=== PATIENT | male | born 1975 | race Caucasian/White ===

== ENCOUNTER 2023-05-21 19:06 | Inpatient (IN) | payer MEDICAID, OTHER ==
[~2023-05-21] VITALS: Ht 177.8 cm; Wt 61.7 kg
[2023-05-21] MEDS ORDERED: KETOROLAC 15MG/ML VIAL IV ONE (19:30)
[2023-05-21] MEDS ORDERED: SODIUM CHLORIDE 0.9% 1,000 ML IV ONE (19:30)
[2023-05-21 20:00] LABS: BASOPHILS % 0.6 % (0.0-2.0); EOSINOPHILS % 0.6 % (0.0-5.0); HEMOGLOBIN. 14.6 g/dL (14.0-18.0); LYMPHOCYTES % 7.2 % (20.0-50.0); MEAN CORPUSCULAR HEMOGLOBIN 29.7 pg (28.0-32.0); MEAN CORPUSCULAR HGB CONC 33.1 g/dL (31.0-37.0); MEAN CORPUSCULAR VOLUME 89.6 fL (80.0-94.0); MEAN PLATELET VOLUME 7.8 fl (7.4-10.4); MONOCYTES % 7.4 % (2.0-8.0); NEUTROPHILS % 84.2 % (40.0-76.0); PLATELET 394 x1000/uL (130-400); RED BLOOD CELL COUNT 4.91 mill/uL (4.7-6.1); RED CELL DISTRIBUTION WIDTH 13.3 % (11.6-14.6); WHITE BLOOD COUNT 14.5 x1000/uL (4.5-11.0)
[2023-05-21 20:09] LABS: CHLORIDE 101 mEq/L (98-107); INDEX HEMOLYSI 1 (1-3); INDEX ICTERIC 1 (1-4); INDEX LIPEMIC 1 (1-3); POTASSIUM 3.4 mEq/L (3.5-5.1); SODIUM 131 mEq/L (136-145)
[2023-05-21 20:10] LABS: PROTHROMBIN TIME 10.5 sec (9.6-11.0)
[2023-05-21 20:18] LABS: ALANINE AMINOTRANSFERASE 10 IU/L (13-61); ALBUMIN 2.5 g/dL (3.4-5.0); ASPARTATE AMINOTRANSFERASE 5 IU/L (15-37); BETA HYDROXYBUTYRATE 9.9 mMol/L (0.0-0.3); BILIRUBIN TOTAL 0.5 mg/dL (0.1-1.0); CREATININE 0.7 mg/dL (0.6-1.3); PROTEIN TOTAL 8.6 g/dL (6.0-8.3); UREA NITROGEN BLOOD 8 mg/dL (7-21)
[2023-05-21 20:24] LABS: CARBON DIOXIDE 7 mEq/L (21-32); GLUCOSE 408 mg/dL (70-105); TROPONIN I HIGH SENSITIVITY < 4 ng/L (<78)
[2023-05-21] MEDS ORDERED: VANCOMYCIN 1G PREMIX 200 ML IV STA (20:37)
[2023-05-21] MEDS ORDERED: PIPERACILLIN/TAZOBACTAM 3.375GM/50ML PREMIX IV STA (20:37)
[2023-05-21] MEDS ORDERED: INSULIN REGULAR (DRIP) 100 UNITS in SODIUM CHLORIDE 0.9% 99 ML IV SCH (20:45)
[2023-05-21] MEDS: DEXT 5%/0.9% NACL 1,000 ML IV SCH (20:45)
[2023-05-21] MEDS ORDERED: DEXTROSE 50% WATER 50ML SYRINGE IV PRN (20:45)
[2023-05-21] MEDS ORDERED: KCL 20MEQ/100ML PREMIX 100 ML IV PRN (20:45)
[2023-05-21] MEDS ORDERED: PIPERACILLIN/TAZ 3.375G PREMIX 50 ML IV NR (20:45)
[2023-05-21] MEDS: BLOOD SUGAR DIAGNOSTIC STRIP TEST SCH ×4 (20:54→23:45)
[2023-05-21 21:08] LABS: PHOSPHORUS 2.8 mg/dL (2.5-4.9)
[2023-05-21 21:13] LABS: BG BASE EXCESS -18.5 mmol/L (-2.0-2.0); BG CARBOXYHEMOGLOBIN 0.5 % (0.5-1.5); BG DEOXYHEMOGLOBIN 3.4 % (0.0-5.0); BG FRACTION INSPIRED OXYGEN 21; BG HCO3 ACT 6.1 mmol/L (22.0-26.0); BG OXYGEN SATURATION 96.6 % (92.0-98.5); BG OXYHEMOGLOBIN 96.1 % (94.0-97.0); BG PCO2 14.5 mmHg (35.0-45.0); BG PH 7.243 (7.350-7.450); BG PO2 88.5 mmHg (75.0-100.0); BG TOTAL HEMOGLOBIN 14.3 g/dL (12.0-18.0); BG VENT MODE NASAL CANNULA
[2023-05-21] MEDS: SODIUM CHLORIDE 0.9% 1,000 ML IV SCH (21:28)
[2023-05-21] MEDS ORDERED: INSULIN REGULAR 100U/100ML PMX 100 ML IV ONE (21:30)
[2023-05-21 22:00] LABS: TROPONIN I HIGH SENSITIVITY < 4 ng/L (<78)
[2023-05-22] MEDS: SODIUM CHLORIDE 0.9% 1,000 ML IV SCH ×2 (00:45→08:30)
[2023-05-22] MEDS: DEXT 5%/0.9% NACL 1,000 ML IV SCH ×6 (00:45→20:45)
[2023-05-22] MEDS: BLOOD SUGAR DIAGNOSTIC STRIP TEST SCH ×14 (00:45→20:56)
[2023-05-22] MEDS ORDERED: IOHEXOL-300 100 ML BOTTLE ONE (04:09)
[2023-05-22 05:26] LABS: CHLORIDE 106 mEq/L (98-107); INDEX HEMOLYSI 1 (1-3); INDEX ICTERIC 1 (1-4); INDEX LIPEMIC 1 (1-3); POTASSIUM 3.3 mEq/L (3.5-5.1); SODIUM 133 mEq/L (136-145)
[2023-05-22 05:32] LABS: ALANINE AMINOTRANSFERASE 10 IU/L (13-61); ALBUMIN 2.3 g/dL (3.4-5.0); ASPARTATE AMINOTRANSFERASE 5 IU/L (15-37); BILIRUBIN TOTAL 0.4 mg/dL (0.1-1.0); CALCIUM 8.2 mg/dL (8.5-10.1); CARBON DIOXIDE 14 mEq/L (21-32); CREATININE 0.7 mg/dL (0.6-1.3); GLUCOSE 294 mg/dL (70-105); PROTEIN TOTAL 7.9 g/dL (6.0-8.3); UREA NITROGEN BLOOD 9 mg/dL (7-21)
[2023-05-22] MEDS ORDERED: POTASSIUM CHLORIDE INJ 40 MEQ in DEXT 5% WATER 250 ML IV ONE (07:15)
[2023-05-22] MEDS: KCL 20MEQ/100ML X 2 FOR TOTAL KCL 40MEQ/200ML IV SCH ×2 (08:00→10:00)
[2023-05-22 09:28] LABS: CHLORIDE 109 mEq/L (98-107); INDEX HEMOLYSI 1 (1-3); INDEX ICTERIC 1 (1-4); INDEX LIPEMIC 1 (1-3); SODIUM 135 mEq/L (136-145)
[2023-05-22 09:39] LABS: ALANINE AMINOTRANSFERASE 9 IU/L (13-61); ALBUMIN 2.2 g/dL (3.4-5.0); BILIRUBIN TOTAL 0.3 mg/dL (0.1-1.0); CALCIUM 8.2 mg/dL (8.5-10.1); CARBON DIOXIDE 17 mEq/L (21-32); CREATININE 0.6 mg/dL (0.6-1.3); GLUCOSE 147 mg/dL (70-105); PROTEIN TOTAL 7.8 g/dL (6.0-8.3); UREA NITROGEN BLOOD 10 mg/dL (7-21)
[2023-05-22 10:09] LABS: ASPARTATE AMINOTRANSFERASE 3 IU/L (15-37)
[2023-05-22 10:11] LABS: POTASSIUM 2.8 mEq/L (3.5-5.1)
[2023-05-22 10:12] LABS: BG BASE EXCESS -8.6 mmol/L (-2.0-2.0); BG CARBOXYHEMOGLOBIN 0.6 % (0.5-1.5); BG DEOXYHEMOGLOBIN 2.2 % (0.0-5.0); BG FRACTION INSPIRED OXYGEN 21; BG HCO3 ACT 14.5 mmol/L (22.0-26.0); BG METHEMOGLOBIN 0.2 % (0.0-1.5); BG OXYGEN SATURATION 97.8 % (92.0-98.5); BG PCO2 24.8 mmHg (35.0-45.0); BG PH 7.384 (7.350-7.450); BG PO2 95.8 mmHg (75.0-100.0); BG SAMPLE SITE RIGHT BRACHIAL; BG TOTAL HEMOGLOBIN 14.1 g/dL (12.0-18.0); BG VENT MODE ROOM AIR
[2023-05-22 20:31] LABS: CHLORIDE 111 mEq/L (98-107); INDEX HEMOLYSI 1 (1-3); INDEX ICTERIC 1 (1-4); INDEX LIPEMIC 1 (1-3); POTASSIUM 3.1 mEq/L (3.5-5.1); SODIUM 137 mEq/L (136-145)
[2023-05-22 20:38] LABS: ALANINE AMINOTRANSFERASE 8 IU/L (13-61); ALBUMIN 2.1 g/dL (3.4-5.0); ASPARTATE AMINOTRANSFERASE 6 IU/L (15-37); BILIRUBIN TOTAL 0.3 mg/dL (0.1-1.0); CALCIUM 8.4 mg/dL (8.5-10.1); CARBON DIOXIDE 18 mEq/L (21-32); CREATININE 0.5 mg/dL (0.6-1.3); GLUCOSE 138 mg/dL (70-105); PROTEIN TOTAL 7.8 g/dL (6.0-8.3); UREA NITROGEN BLOOD 7 mg/dL (7-21)
[2023-05-22] MEDS ORDERED: DEXTROSE 50% WATER 50ML SYRINGE IV PRN (21:15)
[2023-05-22] MEDS: INSULIN LISPRO 100 UNITS/ML SUBCUT SCH (22:55)
[2023-05-22 22:58] LABS: BG BASE EXCESS -6.4 mmol/L (-2.0-2.0); BG CARBOXYHEMOGLOBIN 0.8 % (0.5-1.5); BG DEOXYHEMOGLOBIN 1.9 % (0.0-5.0); BG FRACTION INSPIRED OXYGEN 21; BG HCO3 ACT 16.6 mmol/L (22.0-26.0); BG METHEMOGLOBIN 0.1 % (0.0-1.5); BG OXYGEN SATURATION 98.1 % (92.0-98.5); BG OXYHEMOGLOBIN 97.2 % (94.0-97.0); BG PCO2 26.9 mmHg (35.0-45.0); BG PH 7.407 (7.350-7.450); BG PO2 103.6 mmHg (75.0-100.0); BG SAMPLE SITE RIGHT BRACHIAL; BG TOTAL HEMOGLOBIN 14.6 g/dL (12.0-18.0); BG VENT MODE ROOM AIR
[2023-05-23] MEDS ORDERED: DEXTROSE 50% WATER 50ML SYRINGE IV PRN (00:15)
[2023-05-23] MEDS: BLOOD SUGAR DIAGNOSTIC STRIP TEST SCH ×5 (00:32→21:00)
[2023-05-23] MEDS: INSULIN LISPRO 100 UNITS/ML SUBCUT SCH ×7 (00:44→21:00)
[2023-05-23 01:17] VITALS: BP 120/74; PULSE 87; RESP 17; TEMP 97.7
[2023-05-23] MEDS ORDERED: BLOOD SUGAR DIAGNOSTIC STRIP TEST SCH (06:30)
[2023-05-23 06:45] LABS: CALCIUM 8.1 mg/dL (8.5-10.1); CARBON DIOXIDE 18 mEq/L (21-32); CHLORIDE 108 mEq/L (98-107); INDEX HEMOLYSI 1 (1-3); INDEX ICTERIC 1 (1-4); INDEX LIPEMIC 1 (1-3); POTASSIUM 2.9 mEq/L (3.5-5.1); SODIUM 136 mEq/L (136-145)
[2023-05-23 06:49] LABS: CREATININE 0.5 mg/dL (0.6-1.3); GLUCOSE 256 mg/dL (70-105); UREA NITROGEN BLOOD 8 mg/dL (7-21)
[2023-05-23] MEDS ORDERED: INSULIN LISPRO 100 UNITS/ML SUBCUT SCH (07:00)
[2023-05-23 07:13] LABS: BASOPHILS % 1.9 % (0.0-2.0); EOSINOPHILS % 4.1 % (0.0-5.0); HEMATOCRIT. 41.3 % (42.0-52.0); HEMOGLOBIN. 14.3 g/dL (14.0-18.0); LYMPHOCYTES % 13.8 % (20.0-50.0); MEAN CORPUSCULAR HGB CONC 34.7 g/dL (31.0-37.0); MEAN CORPUSCULAR VOLUME 86.5 fL (80.0-94.0); MEAN PLATELET VOLUME 7.8 fl (7.4-10.4); MONOCYTES % 8.3 % (2.0-8.0); NEUTROPHILS % 71.9 % (40.0-76.0); PLATELET 424 x1000/uL (130-400); RED BLOOD CELL COUNT 4.78 mill/uL (4.7-6.1); RED CELL DISTRIBUTION WIDTH 13.4 % (11.6-14.6); WHITE BLOOD COUNT 9.3 x1000/uL (4.5-11.0)
[2023-05-23 08:00] VITALS: BP 97/55; PULSE 80; RESP 21; TEMP 98
[2023-05-23] MEDS ORDERED: POTASSIUM CHLORIDE 20MEQ TABLET SR PO NR (08:30)
[2023-05-23] MEDS: PIPERACILLIN/TAZOBACTAM 3.375 G in DEXTROSE 5% WATER 50 ML IV SCH ×2 (10:54→17:39)
[2023-05-23 12:00] VITALS: BP 101/65; PULSE 107; RESP 11; TEMP 98
[2023-05-23 13:16] LABS: HEPATITIS B SURFACE ANTIGEN NEGATIVE
[2023-05-23 13:44] LABS: HEPATITIS C VIR.AB 0.17 INDEXVAL (0.00-0.80)
[2023-05-23 16:00] VITALS: BP 113/74; PULSE 86; RESP 13; TEMP 98
[2023-05-24] MEDS: PIPERACILLIN/TAZOBACTAM 3.375 G in DEXTROSE 5% WATER 50 ML IV SCH ×4 (03:00→21:53)
[2023-05-24 07:07] LABS: PREALBUMIN 6.5 mg/dL (20.0-40.0)
[2023-05-24] MEDS: BLOOD SUGAR DIAGNOSTIC STRIP TEST SCH ×4 (07:23→21:00)
[2023-05-24 08:00] VITALS: BP 110/75; PULSE 86; RESP 15; TEMP 99
[2023-05-24] MEDS: INSULIN LISPRO 100 UNITS/ML SUBCUT SCH ×6 (08:23→22:18)
[2023-05-24] MEDS ORDERED: NALOXONE HCL 0.4MG/ML VIAL IV PRN (09:15)
[2023-05-24] MEDS: HYDROCODONE/ACETAMINOPHEN 10/325MG TABLET PO PRN ×3 (09:41→11:53)
[2023-05-24 10:00] VITALS: BP 111/80; PULSE 77; RESP 18; TEMP 98.3
[2023-05-24] MEDS ORDERED: INSULIN GLARGINE 100 UNITS/ML SUBCUT NR (11:45)
[2023-05-24 12:00] VITALS: BP 110/95; PULSE 70; RESP 22; TEMP 99
[2023-05-24 16:00] VITALS: BP 99/69; RESP 18; TEMP 98.5
[2023-05-24] MEDS ORDERED: INSULIN LISPRO 100 UNITS/ML SUBCUT SCH ×2 (16:50)
[2023-05-24 20:00] VITALS: BP 97/61; PULSE 71; RESP 11; TEMP 98.8
[2023-05-24] MEDS: POTASSIUM CHLORIDE 20MEQ TABLET SR PO SCH (21:58)
[2023-05-25] VITALS: BP 93/61; PULSE 74; RESP 12; TEMP 98.3
[2023-05-25] MEDS: HYDROCODONE/ACETAMINOPHEN 10/325MG TABLET PO PRN ×3 (01:16→23:03)
[2023-05-25] MEDS: POTASSIUM CHLORIDE 20MEQ TABLET SR PO SCH ×2 (01:17→04:27)
[2023-05-25 04:00] VITALS: BP 95/62; PULSE 71; RESP 14; TEMP 98.2
[2023-05-25] MEDS: BLOOD SUGAR DIAGNOSTIC STRIP TEST SCH ×4 (06:27→21:00)
[2023-05-25] MEDS: PIPERACILLIN/TAZOBACTAM 3.375 G in DEXTROSE 5% WATER 50 ML IV SCH (06:27)
[2023-05-25] MEDS: INSULIN LISPRO 100 UNITS/ML SUBCUT SCH ×7 (06:35→22:49)
[2023-05-25 08:00] VITALS: BP 100/80; PULSE 70; RESP 19; TEMP 99
[2023-05-25] MEDS: INSULIN GLARGINE 100 UNITS/ML SUBCUT SCH ×2 (09:38→22:48)
[2023-05-25] MEDS ORDERED: CEPH500C2 MT (11:39)
[2023-05-25] MEDS ORDERED: INSU100I28 SQ (11:39)
[2023-05-25 12:00] VITALS: BP 125/75; PULSE 80; RESP 22; TEMP 99
[2023-05-25] MEDS ORDERED: LIDOCAINE HCL 1% 10 MG/ML 10ML VIAL ONE (12:43)
[2023-05-25] MEDS ORDERED: PROPOFOL 200MG/20ML VIAL IV ONE (12:43)
[2023-05-25] MEDS ORDERED: FENTANYL CITRATE/PF 50MCG/ML 2ML VIAL ONE (12:44)
[2023-05-25] MEDS ORDERED: LIDOCAINE HCL 1% 20ML VIAL (Pyxis) INJ ONE (12:52)
[2023-05-25] MEDS ORDERED: BUPIVACAINE HCL/PF 0.5% (5MG/ML) 10ML ONE (12:52)
[2023-05-25] MEDS ORDERED: POLYMYXIN B SULFATE 500000 UNITS/VIAL ONE (12:53)
[2023-05-25] MEDS ORDERED: SKIN ADHESIVE 0.7 GM EA TOP ONE (12:54)
[2023-05-25] MEDS ORDERED: ONDANSETRON HCL 4MG/2ML INJ IV PRN (13:00)
[2023-05-25] MEDS ORDERED: MORPHINE SULFATE 4 MG/ML CPJ (NOT FOR IM USE) IV PRN (13:00)
[2023-05-25] MEDS ORDERED: MORPHINE SULFATE 2 MG/ML CPJ (NOT FOR IM USE) IV PRN (13:00)
[2023-05-25 13:23] LABS: POTASSIUM 4.7 mEq/L (3.5-5.1)
[2023-05-25 16:00] VITALS: BP 100/69; PULSE 73; RESP 12; TEMP 98.6
[2023-05-25] MEDS: CEFAZOLIN 1000MG PREMIX 50 ML IV SCH (17:00)
[2023-05-25 20:00] VITALS: BP 89/62; PULSE 80; RESP 13; TEMP 97.7
[2023-05-26] VITALS (7 sets, daily range): BP systolic 89–117; BP diastolic 59–77; PULSE 71–100; RESP 12–20; TEMP 97.8–99.2; O2SAT 98
[2023-05-26] MEDS: CEFAZOLIN 1000MG PREMIX 50 ML IV SCH ×3 (01:32→17:42)
[2023-05-26] MEDS: BLOOD SUGAR DIAGNOSTIC STRIP TEST SCH ×3 (06:50→16:50)
[2023-05-26] MEDS: INSULIN LISPRO 100 UNITS/ML SUBCUT SCH ×6 (07:11→17:52)
[2023-05-26] MEDS ORDERED: LIDOCAINE HCL 1% 10 MG/ML 10ML VIAL ONE (08:19)
[2023-05-26] MEDS: INSULIN GLARGINE 100 UNITS/ML SUBCUT SCH (09:30)
[2023-05-26] MEDS ORDERED: ETOMIDATE 2MG/ML 10ML VIAL IV ONE (12:42)
[2023-05-26] MEDS ORDERED: POLYMYXIN B SULFATE 500000 UNITS/VIAL ONE (12:48)
[2023-05-26] MEDS ORDERED: LIDOCAINE HCL 1% 20ML VIAL (Pyxis) INJ ONE (12:48)
[2023-05-26] MEDS ORDERED: BUPIVACAINE HCL/PF 0.5% (5MG/ML) 10ML ONE (12:48)
[2023-05-26] MEDS ORDERED: CEFAZOLIN SODIUM 1000MG/VIAL ONE (12:54)
[2023-05-26] MEDS ORDERED: DEXAMETHASONE 4MG/ML 1ML VIAL ONE (13:05)
[2023-05-26] MEDS ORDERED: ONDANSETRON HCL 4MG/2ML INJ ONE (13:05)
[2023-05-26] MEDS ORDERED: MIDAZOLAM HCL 2 MG/2 ML VIAL ONE (13:13)
[2023-05-26] MEDS ORDERED: FENTANYL CITRATE/PF 50MCG/ML 2ML VIAL ONE (13:30)
[2023-05-26] MEDS ORDERED: MEPERIDINE HCL/PF 25MG/ML CPJ IV PRN (13:45)
[2023-05-26] MEDS ORDERED: FENTANYL CITRATE/PF 50MCG/ML 2ML VIAL IV PRN (13:45)
[2023-05-26] MEDS ORDERED: ONDANSETRON HCL 4MG/2ML INJ IV PRN (13:45)
[2023-05-26] MEDS ORDERED: HYDROMORPHONE HCL/PF 2MG/ML CPJ IV PRN (13:45)
== END 2023-05-26 21:15 | disposition home or self-care (01) | DRG 710 ==
LOC: ER 19:06 → MICUSO 21:52 → 3WST 05-23 02:32
PROVIDERS: ADMIT Internal Medicine; ATTEND Internal Medicine
PROC: 0XB50ZZ Excision of Left Axilla, Open Approach (ICD-10-PCS; principal; 2023-05-26)
PROC: 05HY33Z Insertion of Infusion Device into Upper Vein, Percutaneous Approach (ICD-10-PCS; 2023-05-26)
PROC: 0X950ZZ Drainage of Left Axilla, Open Approach (ICD-10-PCS; 2023-05-26)
DX: A41.9 Sepsis, unspecified organism (principal); E11.10 Type 2 diabetes mellitus with ketoacidosis without coma; E43 Unspecified severe protein-calorie malnutrition; E87.1 Hypo-osmolality and hyponatremia; Z68.1 Body mass index [BMI] 19.9 or less, adult; E87.6 Hypokalemia; I10 Essential (primary) hypertension; L02.412 Cutaneous abscess of left axilla; Z79.4 Long term (current) use of insulin; Z91.148 Patient's other noncompliance with medication regimen for other reason; Z89.511 Acquired absence of right leg below knee
CPT/HCPCS: 36415; 36573; 36600; 71260; 80048; 80053; 82010; 82040; 82375; 82805; 82962; 83036; 83605; 83735; 83930; 84100; 84132; 84134; 84484; 85025; 86803; 86850; 86900; 87070; 87075; 87077; 87186; 87340; 88304; 93005; 96365; 96366; 96375; 99291; C1725; C1892; J0690; J1100; J1815; J1885; J2250; J2405; J2543; J2704; J3010; J3370; J3480; J3490; J7030; J7042; J7060; Q9967; A4315